=== PATIENT | female | born 1990 | race Native Hawaiian/Other Pacific Islander ===

== ENCOUNTER 2020-09-09 21:30 | Emergency (ER) | payer SELFPAY ==
[~2020-09-09] VITALS: Ht 152 cm; Wt 90.9 kg
[2020-09-09 21:55] VITALS: BP 171/88
--- NOTE | 2020-09-09 21:59 | ED Upper Extremity ---
General Chief Complaint: Upper Extremity Stated Complaint: R HAND 4TH FINGER SWOLLEN Nursing Triage Note: c/o R finger swelling x 4 dyas Nursing Sepsis Screen: No Definite Risk Source: patient Exam Limitations: no limitations History of Present Illness Date Seen by Provider: Sep 09, 2020 Time Seen by Provider: 21:50 Initial Comments Patient to the ER by private conveyance chief complaint of 4 days ago she started having some pain and swelling associated with her fourth finger distal phalanx on the right hand. She has never had this before. She is having no fevers chills nausea vomiting. She had a little vesicle come up that she drained some clear fluid out of. Allergies and Home Medications Allergies Coded Allergies: No Known Drug Allergies (Unverified , 09/09/20) Home Medications No Active Prescriptions or Reported Meds Patient Home Medication List Home Medication List Reviewed: Yes Review of Systems Constitutional: No chills, No diaphoresis EENTM: No ear discharge, No ear pain Respiratory: No cough, No short of breath Cardiovascular: No edema, No palpitations Gastrointestinal: No abdominal pain, No constipation Genitourinary: No discharge, No dysuria Musculoskeletal: No back pain, No joint pain Skin: see HPI All Other Systems Reviewed Negative Unless Noted: Yes Past [id number]-[id number] Hx Patient Social History Alcohol Use: Denies Use Smoking Status: Never a Smoker 2nd Hand Smoke Exposure: No Recent Infectious Disease Expo: No Past Medical History Surgeries: No Respiratory: No Cardiac: No Neurological: No Genitourinary: No Gastrointestinal: No Musculoskeletal: No Endocrine: No HEENT: No Cancer: No Psychosocial: No Integumentary: No Blood Disorders: No Physical Exam Vital Signs Vital Signs - First Documented 09/09/20 21:55 Temp 36.4 Pulse 92 Resp 18 B/P (MAP) 171/88 (115) Pulse Ox 97 Capillary Refill : Less Than 3 Seconds Height, Weight, BMI Height: '" Weight: lbs. oz. kg; 39.00 BMI Method: General Appearance: WD/WN, mild distress HEENT: PERRL/EOMI, pharynx normal Neck: full range of motion, normal inspection Cardiovascular: normal peripheral pulses, regular rate, rhythm Respiratory: no respiratory distress, no accessory muscle use Hand: Right, swelling (Distal phalanx on the medial side of the dorsal fourth finger has some swelling and a clear fluid-filled vesicle) Progress/Results/Core Measures Results/Orders Vital Signs/I&O 09/09/20 21:55 Temp 36.4 Pulse 92 Resp 18 B/P (MAP) 171/88 (115) Pulse Ox 97 2 Blood Pressure Mean: 115 Progress Progress Note : Time: 22:00 Progress Note Navarro ayon. We will start her on some acyclovir and gabapentin with instructions to keep it clean and look for signs of secondary infection. Departure Impression Primary Impression: Navarro ayon Disposition: HOME, SELF-CARE Condition: Stable Departure-Patient Inst. Decision time for Depature: 22:01 Patient Instructions: petic Richard (DC) Add. Discharge Instructions: Keep the wound clean and covered with gauze. The clear fluid has a virus particles in it and is contagious to other people or even your other fingers. Wash your hands with regular soap and water only. Antibacterials do not help. When you return to work you should wear gloves. Tylenol 1000 mg every 8 hours as necessary for pain. Ibuprofen 800 mg every 8 hours as necessary for pain. Capsaicin oil creams may be helpful for pain. These are available [id number] at your local pharmacy. Start taking acyclovir 5 times a day for the next week to reduce symptoms. Gabapentin 1 capsule every 6 hours as necessary for pain to help reduce the burning sensation. May cause some drowsiness so do not mix with alcohol All discharge instructions reviewed with patient and/or family. Voiced understanding. Scripts Acyclovir (Acyclovir) 800 Mg Tablet 800 MG PO 5XD for 7 Days, #35 TAB 0 Refills Prov: WAYLON DAVIS 09/09/20 Gabapentin (Gabapentin) 100 Mg Capsule 100 MG PO Q6H PRN for PAIN-BREAKTHROUGH, #20 CAP 0 Refills Prov: WAYLON DAVIS 09/09/20 Work/School Note: Work Release Form Date Seen in the Emergency Department: Sep 09, 2020 Return to Work: Sep 12, 2020 Restrictions: No Restrictions Other Restrictions Listed Below: Keep finger dressed and covered with gloves until wound heals. WAYLON DAVSI Sep 09, 2020 21:59
[2020-09-09] MEDS ORDERED: ACYCLOVIR 400 MG TABLET (ZOVIRAX) PO ONE (22:00)
[2020-09-09] MEDS ORDERED: GABAPENTIN 100 MG (NEURONTIN) CAP PO ONE (22:00)
[2020-09-09] MEDS ORDERED: ACYC-112 PO (22:03)
[2020-09-09] MEDS ORDERED: GABA-486 PO (22:03)
== END 2020-09-09 22:06 | disposition home or self-care (01) ==
LOC: ER 21:37
DX: Z48.02 Encounter for removal of sutures (principal)
CPT/HCPCS: 99282